=== PATIENT | female | born 1940 | race Caucasian/White ===

== ENCOUNTER 2024-12-13 13:23 | Inpatient (IN) | payer MEDICARE ==
[~2024-12-13] VITALS: Ht 172.7 cm; Wt 70.8 kg
[2024-12-13 13:55] LABS: HEMOGLOBIN 13.1 g/dL (10.9-14.3); WHITE BLOOD COUNT (AUTO) 7.1 K/uL (3.8-11.8)
[2024-12-13 13:56] LABS: BASOPHILS # (AUTO) 0.1 K/UL (0.0-0.2); BASOPHILS % (AUTO) 0.8 % (0.0-2.0); EOSINOPHILS % (AUTO) 0.4 % (0.0-7.0); HEMATOCRIT 38.7 % (31.2-41.9); LYMPHOCYTES # (AUTO) 2.4 K/uL (0.8-4.8); LYMPHOCYTES % (AUTO) 33.7 % (20.5-51.5); MEAN CORPUSCULAR HGB CONC 34 g/dL (32.3-35.6); MEAN CORPUSCULAR VOLUME 94.2 fL (75.5-95.3); MONOCYTES # (AUTO) 0.6 K/uL (0.1-1.30); NEUTROPHILS # (AUTO) 4.1 K/uL (1.8-8.9); NEUTROPHILS % (AUTO) 57.1 % (38.5-71.5); PLATELET COUNT (AUTO) 194 K/uL (179-408); RED CELL DISTRIBUTION WIDTH 13.9 % (12.3-17.7)
[2024-12-13 13:58] LABS: DIFFERENTIAL COMMENT 1
[2024-12-13 14:07] LABS: CALCIUM 9.6 mg/dL (8.5-10.1); CARBON DIOXIDE 24 mmol/L (21-32); CHLORIDE 105 mmol/L (98-107); CREATININE 0.8 mg/dL (0.6-1.3); GLUCOSE 99 mg/dL (74-106); SODIUM SERUM 141 mmol/L (136-145); UREA NITROGEN, BLOOD 25 mg/dL (7-18)
[2024-12-13 14:16] LABS: ALANINE AMINOTRANSFERASE 25 U/L (14-59); ALBUMIN 3.9 g/dL (3.4-5.0); ALKALINE PHOSPHATASE 103 U/L (50-136); ASPARTATE AMINOTRANSFERASE 23 U/L (15-37); BILIRUBIN,DIRECT 0.2 mg/dL (0.0-0.2); BILIRUBIN,TOTAL 0.7 mg/dL (0.2-1.0)
[2024-12-13 14:20] LABS: MAGNESIUM 2.2 mg/dL (1.8-2.4)
[2024-12-13] MEDS ORDERED: MIRA25TA PO (14:26)
[2024-12-13] MEDS ORDERED: SIMV-49 PO (14:26)
[2024-12-13] MEDS ORDERED: FLUO20CA42 PO (14:26)
[2024-12-13] MEDS ORDERED: LEVO75TA7 PO (14:26)
[2024-12-13] MEDS ORDERED: SUMA100T16 PO (14:26)
[2024-12-13] MEDS: IV NS 1000 ML 1,000 ML IV ONE (14:36)
[2024-12-13 17:37] LABS: *BILIRUBIN,URIN NEGATIVE (NEGATIVE); *BLOOD, URINE NEGATIVE (NEGATIVE); *CLARITY,URINE CLEAR (CLEAR); *COLOR,URINE YELLOW (YELLOW); *KETONES,URINE NEGATIVE (NEGATIVE); *PROTEIN,URINE NEGATIVE (NEGATIVE); *UROBILINOGEN,URINE 0.2 E.U./dl (NORMAL); LEUKOCYTE ESTERASE ,URINE TRACE (NEGATIVE); NITRITE, URINE NEGATIVE (NEGATIVE); UGLUCOSE NEGATIVE (NEGATIVE)
[2024-12-13 18:10] VITALS: BP 157/86; TEMP 98.4; O2SAT 97
[2024-12-13 19:27] LABS: BACTERIA,URINE NONE SEEN /HPF (NONE SEEN); RBC,URINE 0-3 /HPF (0-3); SQUAMOUS EPITHELIAL CELL,UR FEW /HPF (NONE SEEN)
[2024-12-13 19:47] VITALS: BP 152/75; TEMP 97.9; O2SAT 98
[2024-12-13] MEDS ORDERED: MAGNESIUM HYDROXIDE 30 ML LIQUID UDC PO PRN (20:30)
[2024-12-13] MEDS ORDERED: ONDANSETRON 4 MG/2 ML VIAL IV PRN (20:30)
[2024-12-13] MEDS ORDERED: REMEDY ESSENTIAL ZINC PASTE 113 GM TP PRN (20:30)
[2024-12-13] MEDS: ENOXAPARIN SODIUM 40 MG/0.4 ML DISP.SYRIN SQ SCH (21:10)
[2024-12-13 21:14] LABS: THYROID STIMULATING HORMONE 9.286 mIU/mL (0.358-3.740)
[2024-12-13] MEDS ORDERED: CEphaleXIN 250 MG CAPSULE ONE (22:38)
[2024-12-13] MEDS: CEphaleXIN 250 MG CAPSULE PO SCH (22:44)
[2024-12-14] VITALS (7 sets, daily range): BP systolic 133–172; BP diastolic 67–98; TEMP 97–98; O2SAT 97–99
[2024-12-14] MEDS ORDERED: CEphaleXIN 250 MG CAPSULE ONE ×2 (05:50→21:56)
[2024-12-14] MEDS: PANTOPRAZOLE SODIUM 40 MG TABLET.DR PO SCH (06:08)
[2024-12-14 06:37] LABS: BASOPHILS # (AUTO) 0.1 K/UL (0.0-0.2); BASOPHILS % (AUTO) 0.9 % (0.0-2.0); EOSINOPHILS # (AUTO) 0.1 K/uL (0.0-0.7); EOSINOPHILS % (AUTO) 0.8 % (0.0-7.0); HEMATOCRIT 41.9 % (31.2-41.9); HEMOGLOBIN 13.9 g/dL (10.9-14.3); LYMPHOCYTES # (AUTO) 3.2 K/uL (0.8-4.8); LYMPHOCYTES % (AUTO) 46.7 % (20.5-51.5); MEAN CORPUSCULAR HEMOGLOBIN 31.5 uug (24.7-32.8); MEAN CORPUSCULAR HGB CONC 33 g/dL (32.3-35.6); MEAN CORPUSCULAR VOLUME 94.8 fL (75.5-95.3); MONOCYTES # (AUTO) 0.5 K/uL (0.1-1.30); NEUTROPHILS % (AUTO) 43.6 % (38.5-71.5); PLATELET COUNT (AUTO) 202 K/uL (179-408); RED BLOOD CELL COUNT(AUTO) 4.42 MIL/uL (3.63-4.92); WHITE BLOOD COUNT (AUTO) 6.8 K/uL (3.8-11.8)
[2024-12-14 06:46] LABS: DIFFERENTIAL COMMENT 1
[2024-12-14 06:52] LABS: CALCIUM 9.5 mg/dL (8.5-10.1); CARBON DIOXIDE 26 mmol/L (21-32); CHLORIDE 106 mmol/L (98-107); CREATININE 0.8 mg/dL (0.6-1.3); GLUCOSE 98 mg/dL (74-106); MAGNESIUM 2.3 mg/dL (1.8-2.4); PHOSPHOROUS 3.1 mg/dL (2.5-4.9); POTASSIUM 3.7 mmol/L (3.5-5.1); SODIUM SERUM 142 mmol/L (136-145); UREA NITROGEN, BLOOD 15 mg/dL (7-18)
[2024-12-14] MEDS ORDERED: LEVOTHYROXINE SODIUM 75 MCG TABLET PO SCH (07:00)
[2024-12-14] MEDS ORDERED: FLUOXETINE HCL 20 MG CAPSULE PO SCH (09:00)
[2024-12-14] MEDS: FLUOXETINE HCL 20 MG CAPSULE PO SCH (10:47)
[2024-12-14] MEDS: LEVOTHYROXINE SODIUM 75 MCG TABLET PO SCH (10:47)
[2024-12-14] MEDS ORDERED: LIDOCAINE HCL 1% 20 ML VIAL ONE (11:10)
[2024-12-14] MEDS ORDERED: BUPIVACAINE PF 0.5% 30 ML VIAL ONE (11:10)
[2024-12-14] MEDS ORDERED: PROPOFOL 200 MG/20 ML BOTTLE ONE (15:00)
[2024-12-14] MEDS ORDERED: FENTANYL CITRATE 100 MCG/2 ML AMPUL ONE (15:41)
[2024-12-14] MEDS ORDERED: MEPERIDINE 25 MG/1 ML DISP.SYRIN ONE (17:41)
[2024-12-14] MEDS ORDERED: hydrALAZINE HCL 20 MG/1 ML VIAL IV PRN (17:45)
[2024-12-14] MEDS: MEPERIDINE 25 MG/1 ML DISP.SYRIN IV PRN (17:48)
[2024-12-14] MEDS ORDERED: SIMVASTATIN 40 MG TABLET PO SCH (18:00)
[2024-12-14] MEDS: MORPHINE SULFATE 2 MG/1 ML DISP.SYRIN IV ONE (20:09)
[2024-12-14] MEDS: SIMVASTATIN 40 MG TABLET PO SCH (21:01)
[2024-12-14] MEDS: hydrALAZINE HCL 20 MG/1 ML VIAL IV ONE (22:07)
[2024-12-14] MEDS: ACETAMINOPHEN 325 MG TABLET PO PRN (22:40)
[2024-12-15 00:02] VITALS: BP 136/69; TEMP 97.3; O2SAT 95
[2024-12-15 04:42] VITALS: BP 164/84; TEMP 97.7; O2SAT 96
[2024-12-15] MEDS ORDERED: CEphaleXIN 250 MG CAPSULE ONE (06:07)
[2024-12-15 07:09] VITALS: BP 154/84; TEMP 97.8; O2SAT 98
[2024-12-15] MEDS ORDERED: hydrALAZINE HCL 25 MG TABLET PO PRN (07:45)
[2024-12-15] MEDS ORDERED: CEPH250C PO (08:37)
[2024-12-15] MEDS ORDERED: ENOXAPARIN SODIUM 40 MG/0.4 ML DISP.SYRIN SQ SCH (21:00)
== END 2024-12-15 10:47 | disposition home or self-care (01) | DRG 243 ==
LOC: ER 13:23 → TELE3 14:08
PROVIDERS: ADMIT Nurse Practitioner Acute Care; ATTEND Nurse Practitioner Acute Care
PROC: 02H63JZ Insertion of Pacemaker Lead into Right Atrium, Percutaneous Approach (ICD-10-PCS; 2024-12-14)
PROC: 02HK3JZ Insertion of Pacemaker Lead into Right Ventricle, Percutaneous Approach (ICD-10-PCS; 2024-12-14)
PROC: 0JH606Z Insertion of Pacemaker, Dual Chamber into Chest Subcutaneous Tissue and Fascia, Open Approach (ICD-10-PCS; principal; 2024-12-14 14:30)
DX: I49.5 Sick sinus syndrome (principal); F03.A3 Unspecified dementia, mild, with mood disturbance; N39.0 Urinary tract infection, site not specified; F03.A4 Unspecified dementia, mild, with anxiety; E03.9 Hypothyroidism, unspecified; E78.5 Hyperlipidemia, unspecified; N32.81 Overactive bladder; G43.909 Migraine, unspecified, not intractable, without status migrainosus; F32.A Depression, unspecified; I10 Essential (primary) hypertension; R06.89 Other abnormalities of breathing
CPT/HCPCS: 36415; 70450; 71045; 83605; 83735; 84100; 84443; 84484; 85025; 85610; 93307; A4663; G0378; J0360; J0690; J1650; J2175; J2270; J2405; J3010; J3490; J7040